=== PATIENT | female | born 2000 ===

== ENCOUNTER 2024-07-03 15:10 | Inpatient (IN) | payer OTHER ==
[~2024-07-03] VITALS: Ht 149.9 cm; Wt 77.8 kg
[2024-07-03] VITALS (16 sets, daily range): BP systolic 126–178; BP diastolic 74–112
[2024-07-03] MEDS: NIFEdipine 10 MG CAP PO STA (15:33)
[2024-07-03] MEDS ORDERED: MULTTAB20 PO (15:34)
[2024-07-03] MEDS ORDERED: PEPC40TA12 PO (15:34)
[2024-07-03] MEDS ORDERED: HOME MED LIST COMPLETE! XX SCH (15:35)
[2024-07-03] MEDS: BETAMETHASONE SOLUSPAN 6MG/ML 5ML VIAL IM SCH (16:04)
[2024-07-03] MEDS: LABETALOL 100MG/20ML VIAL IV STA (16:24)
[2024-07-03 16:32] LABS: HEMATOCRIT 36.8 % (36.0-47.0); HEMOGLOBIN 12.9 g/dl (12.0-15.5); MEAN CORPUSCULAR HEMOGLOBIN 31.5 pg (27.0-33.0); MEAN CORPUSCULAR HGB CONC 35.1 g/dl (32.0-36.5); MEAN CORPUSCULAR VOLUME 89.8 fl (80.0-96.0); PLATELET COUNT, AUTOMATED 213 10^3/uL (150-450); WHITE BLOOD COUNT 9.5 10^3/uL (4.0-10.0)
[2024-07-03 17:00] LABS: URIC ACID 9.1 MG/DL (3.1-7.8)
[2024-07-03 17:02] LABS: LDH LACTATE DEHYDROGENASE 270 U/L (120-246)
[2024-07-03 17:03] LABS: ALT/SGPT 18 U/L (7.0-40); AST/SGOT 22 U/L (<34); BILIRUBIN,TOTAL 0.2 MG/DL (0.3-1.2); CREATININE FOR GFR 0.94 MG/DL (0.55-1.30); GLOMERULAR FILTRATION RATE > 60.0 (>60)
[2024-07-03] MEDS ORDERED: PEPC1TAB5 PO (17:25)
[2024-07-03 18:29] LABS: CREATININE,RANDOM URINE 70.1 MG/DL
[2024-07-03 18:31] LABS: TOTAL PROTEIN,RANDOM URINE 709.9 MG/DL (0.0-14.0)
[2024-07-03] MEDS: FAMOTIDINE 20 MG TAB PO ONE (18:50)
[2024-07-03] MEDS ORDERED: PENICILLIN G POTASSIUM 5 MU IV 5 MU in DEXTROSE 5% (D5W) MINI-BAG PLU 100 ML IV STA (20:47)
[2024-07-03] MEDS: miSOPROStol 50MCG 1/2 TABLET PO SCH (21:06)
[2024-07-03] MEDS: ACETAMINOPHEN 500 MG TAB PO PRN (21:09)
[2024-07-04] VITALS (24 sets, daily range): BP systolic 115–162; BP diastolic 71–102
[2024-07-04] MEDS: LABETALOL 100MG/20ML VIAL IV STA
[2024-07-04] MEDS ORDERED: PEN G POT 3,000,000 UNIT/50 ML 3,000,000 UNIT in IV 1 EA IV SCH (00:50)
[2024-07-04 02:43] LABS: HEMATOCRIT 33.7 % (36.0-47.0); HEMOGLOBIN 11.9 g/dl (12.0-15.5); MEAN CORPUSCULAR HEMOGLOBIN 31.7 pg (27.0-33.0); MEAN CORPUSCULAR HGB CONC 35.3 g/dl (32.0-36.5); MEAN CORPUSCULAR VOLUME 89.9 fl (80.0-96.0); PLATELET COUNT, AUTOMATED 194 10^3/uL (150-450); RED BLOOD COUNT 3.75 10^6/uL (4.00-5.40); WHITE BLOOD COUNT 11.6 10^3/uL (4.0-10.0)
[2024-07-04 03:08] LABS: URIC ACID 9.5 MG/DL (3.1-7.8)
[2024-07-04 03:10] LABS: LDH LACTATE DEHYDROGENASE 257 U/L (120-246)
[2024-07-04 03:11] LABS: ALT/SGPT 20 U/L (7.0-40); AST/SGOT 21 U/L (<34); BILIRUBIN,TOTAL 0.2 MG/DL (0.3-1.2); CREATININE FOR GFR 0.85 MG/DL (0.55-1.30); GLOMERULAR FILTRATION RATE > 60.0 (>60)
[2024-07-04] MEDS ORDERED: OXYTOCIN DRIP 30 UNITS in IV 1 EA IV PRN (08:45)
[2024-07-04] MEDS ORDERED: LACTATED RINGER'S 1000 ML IV PRN (08:45)
[2024-07-04] MEDS ORDERED: METHYLERGONOVINE MALEATE 0.2MG/ML 1ML VIAL IM PRN (08:45)
[2024-07-04] MEDS ORDERED: CARBOPROST TROMETHAMINE 250 MCG/ML AMP IM PRN (08:45)
[2024-07-04] MEDS ORDERED: TRANEXAMIC ACID INJection 1,000 MG in NS 100 ML IV PRN (08:45)
[2024-07-04] MEDS ORDERED: miSOPROStol 50MCG 1/2 TABLET BUC SCH (11:30)
[2024-07-04] MEDS: miSOPROStol 50MCG 1/2 TABLET BUC SCH (12:04)
[2024-07-04 14:22] LABS: HEMATOCRIT 36.2 % (36.0-47.0); HEMOGLOBIN 12.7 g/dl (12.0-15.5); MEAN CORPUSCULAR HEMOGLOBIN 31.9 pg (27.0-33.0); MEAN CORPUSCULAR HGB CONC 35.1 g/dl (32.0-36.5); PLATELET COUNT, AUTOMATED 232 10^3/uL (150-450); RED BLOOD COUNT 3.98 10^6/uL (4.00-5.40); WHITE BLOOD COUNT 17.2 10^3/uL (4.0-10.0)
[2024-07-04 15:00] LABS: ALBUMIN 2.4 G/DL (3.2-5.2); ALKALINE PHOSPHATASE 141 U/L (35-104); ALT/SGPT 21 U/L (7.0-40); AST/SGOT 22 U/L (<34); BILIRUBIN,TOTAL 0.2 MG/DL (0.3-1.2); BLOOD UREA NITROGEN 26 MG/DL (9-23); CALCIUM LEVEL 8.8 MG/DL (8.5-10.1); CARBON DIOXIDE LEVEL 18 MMOL/L (20-31); CHLORIDE LEVEL 106 MMOL/L (98-107); CREATININE FOR GFR 0.92 MG/DL (0.55-1.30); GLOMERULAR FILTRATION RATE > 60.0 (>60); GLUCOSE, FASTING 160 MG/DL (60-100); POTASSIUM SERUM 4.4 MMOL/L (3.5-5.1); SODIUM LEVEL 136 MMOL/L (136-145); TOTAL PROTEIN 6.2 G/DL (5.7-8.2)
[2024-07-04] MEDS: LR 1,000 ML IV SCH (20:49)
[2024-07-04] MEDS: OXYTOCIN DRIP 30 UNITS in IV 1 EA IV SCH (20:49)
[2024-07-04] MEDS: PENICILLIN G POTASSIUM 5 MU IV 5 MU in DEXTROSE 5% (D5W) MINI-BAG PLU 100 ML IV STA (20:50)
[2024-07-05] VITALS (71 sets, daily range): BP systolic 78–178; BP diastolic 47–103; TEMP 98; O2SAT 95–100
[2024-07-05] MEDS: PEN G POT 3,000,000 UNIT/50 ML 3,000,000 UNIT in IV 1 EA IV SCH (00:56)
[2024-07-05] MEDS: MAG Sulf (L&D) 4 GM/100 ML 4 GM in IV 1 EA IV ONE (01:00)
[2024-07-05] MEDS: MAG Sulf (OBGYN) 20GM/500ML 20,000 MG in IV 1 EA IV SCH (01:32)
[2024-07-05] MEDS: CALCIUM CARBONATE 500 MG CHEW U/D PO PRN (01:32)
[2024-07-05] MEDS: LR 1,000 ML IV SCH (04:26)
[2024-07-05] MEDS: ceFAZolin SOD 2 GM in IV 1 EA IV ONE (10:10)
[2024-07-05 10:27] LABS: HEMATOCRIT 37.6 % (36.0-47.0); HEMOGLOBIN 13.2 g/dl (12.0-15.5); MEAN CORPUSCULAR HEMOGLOBIN 32.1 pg (27.0-33.0); MEAN CORPUSCULAR HGB CONC 35.1 g/dl (32.0-36.5); MEAN CORPUSCULAR VOLUME 91.5 fl (80.0-96.0); PLATELET COUNT, AUTOMATED 236 10^3/uL (150-450); RED BLOOD COUNT 4.11 10^6/uL (4.00-5.40); WHITE BLOOD COUNT 20.3 10^3/uL (4.0-10.0)
[2024-07-05] MEDS: AZITHROMYCIN INJ 500 MG, VIAL MATE ADAPTER 1 EACH in NS 250 ML IV ONE (10:32)
[2024-07-05] MEDS: BICITRA 30ML SOLN UDC PO ONE (10:44)
[2024-07-05] MEDS ORDERED: KETOROLAC 60MG 2ML VIAL As Ordered ONE (11:00)
[2024-07-05] MEDS ORDERED: ONDANSETRON 4MG 2ML VIAL As Ordered ONE (11:00)
[2024-07-05] MEDS ORDERED: PHENYLephrine 500MCG 5ML (100MCG/ML) SYRINGE As Ordered ONE (11:00)
[2024-07-05] MEDS ORDERED: MORPHINE PRES-FREE INJ 10 MG/10 ML VIAL As Ordered ONE (11:00)
[2024-07-05 11:53] LABS: CORD GAS ABE A -6.3; CORD GAS HCO3 A 22.9 MMOL/L; CORD GAS O2 SAT A 41.1 %; CORD GAS PCO2 A 59.1 mmHg; CORD GAS PH A 7.206 UNITS; CORD GAS PO2 A 20.3 mmHg; CORD GAS TCO2 A 24.7 MMOL/L
[2024-07-05 11:56] LABS: CORD GAS ABE V -5.4; CORD GAS HCO3 V 21.8 MMOL/L; CORD GAS O2 SAT V 69.2 %; CORD GAS PCO2 V 48.2 mmHg; CORD GAS PH V 7.274 UNITS; CORD GAS PO2 V 29.2 mmHg; CORD GAS SBC V 19.4 MMOL/L; CORD GAS TCO2 V 23.3 MMOL/L
[2024-07-05] MEDS ORDERED: RHOGAM 300MCG (1500IU) INJ IM SCH (12:05)
[2024-07-05] MEDS ORDERED: ONDANSETRON 4MG TAB PO PRN (12:05)
[2024-07-05] MEDS ORDERED: PERCOCET 5MG/325MG TAB PO PRN (12:05)
[2024-07-05] MEDS ORDERED: IBUP80TA PO (15:11)
[2024-07-05] MEDS ORDERED: COLA100C5 PO (15:11)
[2024-07-05] MEDS ORDERED: OXYC1TAB23 PO (15:13)
[2024-07-05] MEDS: KETOROLAC 30 MG/ML 1ML VIAL IV SCH (17:58)
[2024-07-06] VITALS (18 sets, daily range): BP systolic 123–156; BP diastolic 79–100; O2SAT 98–99
[2024-07-06 04:55] LABS: HEMATOCRIT 29.3 % (36.0-47.0); MEAN CORPUSCULAR HEMOGLOBIN 31.7 pg (27.0-33.0); MEAN CORPUSCULAR HGB CONC 34.1 g/dl (32.0-36.5); PLATELET COUNT, AUTOMATED 196 10^3/uL (150-450); RED BLOOD COUNT 3.15 10^6/uL (4.00-5.40); WHITE BLOOD COUNT 15.8 10^3/uL (4.0-10.0)
[2024-07-06] MEDS: LR 1,000 ML IV SCH (06:50)
[2024-07-06 07:56] LABS: LDH LACTATE DEHYDROGENASE 329 U/L (120-246)
[2024-07-06 07:57] LABS: ALT/SGPT 21 U/L (7.0-40); AST/SGOT 26 U/L (<34); BILIRUBIN,TOTAL < 0.2 MG/DL (0.3-1.2); CREATININE FOR GFR 0.97 MG/DL (0.55-1.30); GLOMERULAR FILTRATION RATE > 60.0 (>60)
[2024-07-06] MEDS: LABETALOL 100MG TAB PO SCH (09:00)
[2024-07-06] MEDS: FAMOTIDINE 20 MG TAB PO SCH (09:00)
[2024-07-06] MEDS: PRENATAL VITAMINS CHEWABLE TABLET PO SCH (09:00)
[2024-07-06] MEDS: IBUPROFEN 800 MG TAB PO SCH (13:56)
[2024-07-06] MEDS: DOCUSATE SODIUM 100MG CAPSULE PO PRN (20:03)
[2024-07-06] MEDS: SIMETHICONE 80MG CHEW TAB PO PRN (20:03)
[2024-07-06] MEDS: PERCOCET 5MG/325MG TAB PO PRN (20:04)
[2024-07-07 02:00] VITALS: BP 112/56; O2SAT 98
[2024-07-07 06:00] VITALS: BP 132/66; O2SAT 98
[2024-07-07] MEDS: MEASLES,MUMPS,RUBELLA VACCINE INJ (MMR-II) SC.IMMUN ONE (09:00)
[2024-07-07 10:00] VITALS: BP 128/72; O2SAT 97
[2024-07-07 14:00] VITALS: BP 132/76; O2SAT 97
[2024-07-07 18:00] VITALS: BP 148/84; O2SAT 98
[2024-07-07 22:00] VITALS: BP 146/87; O2SAT 98
[2024-07-08 02:00] VITALS: BP 146/85; O2SAT 96
[2024-07-08 06:00] VITALS: BP 131/85; O2SAT 97
[2024-07-08 09:31] VITALS: BP 140/80
[2024-07-08 10:00] VITALS: O2SAT 100
[2024-07-08] MEDS ORDERED: FLUZONE VACCINE TRIVALENT PF(2024-25) 0.5ML SYRINGE IM.IMMUN ONE (14:15)
[2024-07-08] MEDS: FLUZONE VACCINE TRIVALENT PF(2024-25) 0.5ML SYRINGE IM.IMMUN ONE (14:30)
== END 2024-07-08 14:42 | disposition home or self-care (01) | DRG 788 ==
LOC: M LDO 15:10 → M LDI 18:25 → M OBS 07-06 12:20 → UNDODISIN 07-08 14:00
PROVIDERS: ADMIT Advanced Practice Midwife; ATTEND Specialist
PROC: 3E0P7GC Introduction of Other Therapeutic Substance into Female Reproductive, Via Natural or Artificial Opening (ICD-10-PCS; 2024-07-03)
PROC: 10D00Z1 Extraction of Products of Conception, Low, Open Approach (ICD-10-PCS; principal; 2024-07-05 11:25)
DX: O14.14 Severe pre-eclampsia complicating childbirth (principal); Z3A.35 35 weeks gestation of pregnancy; O62.0 Primary inadequate contractions; Z37.0 Single live birth